=== PATIENT | male | born 2005 | race Caucasian/White ===

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

== ENCOUNTER 2024-08-06 12:41 | Emergency (ER) | payer OTHER, SELFPAY ==
[2024-08-06 12:45] VITALS: BP 150/82
--- NOTE | 2024-08-06 13:30 | ED.GENMED ---
History of Present Illness
General
Chief Complaint: Musculo-Skeletal Complaint
Time Seen by Provider: 08/06/24 13:01
History of Present Illness
History of Present Illness:
18-year-old male presents to the emergency department for evaluation of left shoulder pain ongoing for 2 weeks. States initial injury occurred while he was making a tackle. Pain is located to the posterior subacromial space. He has full range of
motion.
Review of Systems
Review of Systems
Allergies reviewed?: Yes
All Other Systems: ROS reviewed and negative except as documented in HPI and ROS
Phy Exam
Physical Exam
Physical Exam:
GEN: Well appearing, NAD, WDWN
HEENT: Oral mucosa moist, no scleral icterus
Cardiac: Regular rate
Lung: No respiratory distress, no tachypnea
MSK: No gross deformity or injuries. Left shoulder range of motion is normal. Full strength elicited with external and internal rotation as well as abduction and adduction. Tender to the posterior subacromial space with increased pain on Neer
impingement test
Skin: Good color, no pallor or jaundice, no rashes
Neuro: AO x3, moves all extremities freely
Psych: Calm, cooperative
Course
Orders/Labs/Results
Orders:
Orders
08/06/24 12:42
Shoulder, Left, Trauma CR [CR Shoulder, Trauma - Left] Urgent
Comment:
Reason For Exam: pain left shoulder x 1 week
Vital Signs
Initial and Last Documented VS:
Initial Vital Signs
Temp Pulse Resp BP Pulse Ox
97.9 F 95 20 150/82 97
08/06/24 12:45 08/06/24 12:45 08/06/24 12:45 08/06/24 12:45 08/06/24 12:45
Last Documented Vital Signs
Temp Pulse Resp BP Pulse Ox
97.9 F 95 20 150/82 97
08/06/24 12:45 08/06/24 12:45 08/06/24 12:45 08/06/24 12:45 08/06/24 12:45
MDM/Problems Addressed
MDM/Problems Addressed:
X-rays of the left shoulder independently interpreted by me show no acute osseous abnormality. He has no weakness to rotator cuff assessment, primary location of pain suspicious for bursitis. Will treat with NSAIDs and recommend orthopedic
follow-up as intrabursal injection may be warranted if pain persists
*Critical Care Note
Total Time (30-74mins, 75-104mins- exclusive of procedures): Not Applicable
ED Attending Note
-
Portions of this chart may have been created with voice recognition software.� Occasional wrong word or��sound alike� substitutions may have occurred due to the inherent limitations of voice recognition software.
Discharge Plan
Departure
Patient Disposition: Home (Routine Discharge)
Date of Disposition: 08/06/24
Time of Disposition: 13:30
Patient with high blood pressure during this ER visit?: No
Discharge Problem:
Acute bursitis of left shoulder
Instructions: Bursitis (DC), Shoulder Bursitis Exercises
Prescriptions:
New
diclofenac sodium 75 mg tablet,delayed release (DR/EC)
75 mg PO BID 10 Days Qty: 20 0RF
No Action
cephalexin 500 mg capsule
500 mg PO Q6H Qty: 20 0RF
Referrals:
Dwayne Rosas MD [Active] -
Activity Restrictions/Additional Instructions:
Follow up with Orthopedics in 1-2 weeks if pain is not improving with medications
Continue shoulder rehab exercises
Interventions
Interventions:
*Risk Screen - Suicide Last Done: 08/06/24 12:43
*General Assessment Last Done: 08/06/24 12:45
*Neglect/Abuse Screening Last Done: 08/06/24 12:45
*Nursing Disposition Last Done: 08/06/24 13:36
Discharge Date and Time
Discharge Date/Time: 08/06/24 13:36
Print Language: [id number]
== END 2024-08-06 13:36 | disposition home or self-care (01) ==
LOC: EMR 12:41
PROVIDERS: EMERGENCY PHYSICIAN Student in an Organized Health Care Education/Training Program
DX: M75.52 Bursitis of left shoulder (principal)
CPT/HCPCS: 99283; 73030